=== PATIENT | male | born 1975 | race Caucasian/White ===

== ENCOUNTER 2019-08-06 21:44 | Emergency (ER) | payer OTHER ==
[~2019-08-06] VITALS: Ht 190.5 cm; Wt 123.2 kg
[2019-08-06 21:46] VITALS: BP 132/93
--- NOTE | 2019-08-06 22:01 | NUR ---
Pt alert and resting on gurney. Pt noted to have dried blood on upper lip, oral cavity, and nose. No airway compromise noted. Pt changed into gown. Pt reports pt was drinking, walked home from the bar and tripped on their front porch. Pt does not remember this. Hx of PTSD and only medication is for "anxiety and PTSD".
[2019-08-06] MEDS ORDERED: LIDOCAINE-MPF 1%, 5ML ONE (22:23)
[2019-08-06] MEDS ORDERED: DIPH,PERTUSS(ACELL),TET VAC/PF 0.5 ML IM-VACC ONE ×2 (22:23→22:30)
[2019-08-06] MEDS ORDERED: LIDOCAINE 1%, 10ML INFIL ONE (22:30)
--- NOTE | 2019-08-06 22:36 | NUR ---
Pt placed in C-collar. Pt on pulse ox/HR monitor. Tetanus booster given. Lido at bedside for MD. remains at bedside. Aware of plan for CT's and sutures.
--- NOTE | 2019-08-06 22:54 | NUR ---
Pt to CT.
[2019-08-06] MEDS ORDERED: L.E.T SOLUTION TP ONE (23:17)
--- NOTE | 2019-08-06 23:20 | NUR ---
Per PA, LET soaked guaze pads placed over laceration so pt can tolerated cleaning.
[2019-08-06] MEDS ORDERED: ONDANSETRON ODT 4 MG ONE (23:52)
--- NOTE | 2019-08-06 23:58 | NUR ---
Pt had one episode of emesis. PA updated, and order for zofran received. Pt medicated with zofran.
[2019-08-07] MEDS ORDERED: ONDANSETRON ODT 4 MG PO ONE
--- NOTE | 2019-08-07 00:21 | NUR ---
PA at bedside for sutures.
--- NOTE | 2019-08-07 01:31 | NUR ---
Pt sleeping on [facility].
--- NOTE | 2019-08-07 01:48 | NUR ---
Pt able to ambulate up and down the kidd without assistance. Pt denies lightheadedness, dizziness, nausea.
--- NOTE | 2019-08-07 01:58 | NUR ---
Pt dc'd to self care. Pt alert, oriented and ambulatory at time of d/c. Education provided to pt and on home care, follow-up, OTC meds and S/Sx to return. Both VU. Pt ambulated out of ER.
== END 2019-08-07 02:01 | disposition home or self-care (01) ==
LOC: ED 08-07 01:25
DX: S02.2XXA Fracture of nasal bones, initial encounter for closed fracture (principal); S02.40CA Maxillary fracture, right side, initial encounter for closed fracture; S01.511A Laceration without foreign body of lip, initial encounter; S09.90XA Unspecified injury of head, initial encounter; F10.129 Alcohol abuse with intoxication, unspecified; W01.0XXA Fall on same level from slipping, tripping and stumbling without subsequent striking against object, initial encounter; Y93.89 Activity, other specified; Y92.098 Other place in other non-institutional residence as the place of occurrence of the external cause; Y99.8 Other external cause status; Y90.9 Presence of alcohol in blood, level not specified
CPT/HCPCS: 12052; 70450; 70486; 72125; 90471; 90715; 99285; Q0162